=== PATIENT | male | born 1990 | race African-American/Black ===

== ENCOUNTER 2020-04-16 13:36 | Emergency (ER) | payer OTHER, SELFPAY ==
--- NOTE | ~2020-04-16 | XR_ITS ---
XR finger 1st LT min 2V DATE: 04/16/2020 14:31 INDICATION: Left thumb pain TECHNIQUE: 3 views COMPARISON: None FINDINGS: There is bandage material about the first digit. There appears to be some loss of soft tiss ues of the distal aspect of the first digit suggesting some soft tissue amputation; recommend correla tion with physical examination. No radiopaque soft tissue foreign body is detected. No fracture, dislocation, periosteal reaction or bone destruction. IMPRESSION: No radiopaque foreign body, fracture or dislocation or bone destruction Reviewed, dictated and finalized at location A. IMPRESSION: No radiopaque foreign body, fracture or dislocation or bone destruc tion
[2020-04-16 13:39] VITALS: BP 171/99; PULSE 106; RESP 20; TEMP 36.8; O2SAT 97
[2020-04-16 14:45] VITALS: BP 160/89; PULSE 106; RESP 20; O2SAT 98
--- NOTE | 2020-04-16 16:28 | ED.GENADULT ---
HPI - General Adult General Chief complaint: Wound/Laceration Stated complaint: finger lac Time Seen by Provider: 04/16/20 13:38 Source: patient Mode of arrival: ambulatory Limitations: no limitations History of Present Illness HPI narrative: Patient is a 29-year-old male who presents to emergency department for evaluation of skin avulsion of the distal left thumb was using a knife when he sliced the thumb patient notes aching pain worse with touch and activity is unsure to his tetanus status presents per private vehicle in no distress denies other injuries or complaints Related Data Home Medications Medication Instructions Recorded Confirmed No Home Medications 04/16/20 04/16/20 Allergies Allergy/AdvReac Type Severity Reaction Status Date / Time No Known Allergies Allergy Unverified 04/16/20 13:48 Review of Systems Review of Systems: Narrative: CONSTITUTIONAL: Denies fever, chills, or sweats. SKIN: Positive for skin avulsion MUSCULOSKELETAL: Positive for finger pain NEUROLOGIC: Denies numbness or tingling PMFSH Social History Social History Gender identity (if verbalized by the patient): Male Exam Narrative: Exam Narrative: GENERAL: Well-appearing, well-nourished, and in no acute distress. HEAD: Normocephalic, atraumatic. EYES: PERRLA and EOMI. ENT: Nares clear, no rhinorrhea or epistaxis. Mucous membranes moist. EXTREMITIES: Normal range of motion. No edema. SKIN: Warm, dry, no rash. Skin avulsion of the distal left thumb NEURO: No focal deficits. Alert and oriented x3. Neurovascularly intact PSYCH: Normal mood and affect. Course Course Emergency Course: Patient in the room at this time in no distress hemodynamically stable bleeding controlled felt appropriate for outpatient reevaluation provided with reasons to return Vital Signs Vital signs: Vital Signs Temperature 98.2 F 04/16/20 13:39 Pulse Rate 106 H 04/16/20 13:39 Respiratory Rate 04/16/20 13:39 Blood Pressure 171/99 H 04/16/20 13:39 Pulse Oximetry 97 04/16/20 13:39 Temperature 98.2 F 04/16/20 13:39 Pulse Rate 106 H 04/16/20 13:39 Respiratory Rate 04/16/20 13:39 Blood Pressure 171/99 H 04/16/20 13:39 Pulse Oximetry 97 04/16/20 13:39 Procedures Other Procedure Procedure 1: Other Procedure: Surgicel applied to thumb with 4 x 4 and pressure dressing Medical Decision Making MDM Narrative Medical decision making narrative: Patients injury or pain is consistent with musculoskeletal etiology. No signs of neurological or vascular compromise on exam. Compartments and tisues are soft without signs of compartment syndrome. Pain is felt appropriate for further evaluation on an outpatient basis. Vital Signs Vital Signs: Vital Signs Temperature 98.2 F 04/16/20 13:39 Pulse Rate 106 H 04/16/20 13:39 Respiratory Rate 20 04/16/20 13:39 Blood Pressure 171/99 H 04/16/20 13:39 Pulse Oximetry 97 04/16/20 13:39 Temperature 98.2 F 04/16/20 13:39 Pulse Rate 106 H 04/16/20 13:39 Respiratory Rate 04/16/20 13:39 Blood Pressure 171/99 H 04/16/20 13:39 Pulse Oximetry 97 04/16/20 13:39 Discharge Plan Discharge Clinical Impression: Avulsion of skin Patient Disposition: Home, Self-Care Condition: Stable Instructions: Antibiotic Form, Skin Avulsion (ED) Additional Instructions: Keep wound clean and dry. Do not soak, take baths, or swim until wound is completely healed. If any signs of infection such as redness, swelling, increasing pain, drainage of purulent discharge, streaks up your extremity develop, seek medical attention immediately. Follow-up with primary care in the next 7 days for reevaluation Prescriptions: No Action No Home Medications RF: 0 Follow-up/Referrals: Kennedy Mcallister MD [Physician] - PHYSICIAN,[employer] [Primary Care Provider] - Stand Alone Forms: Work/School
[2020-04-16 16:30] VITALS: BP 140/89; PULSE 98; RESP 20; O2SAT 100
== END 2020-04-16 16:57 | disposition home or self-care (01) ==
PROVIDERS: Emergency Provider Emergency Medicine
DX: S61.002A Unspecified open wound of left thumb without damage to nail, initial encounter (principal); W26.0XXA Contact with knife, initial encounter
CPT/HCPCS: 12001; 73140; 99283; A9270